=== PATIENT | female | born 1980 | race Asian ===

== ENCOUNTER 2016-08-25 17:25 | Inpatient (IN) | payer SELFPAY ==
[~2016-08-25] VITALS: Ht 161 cm; Wt 74.8 kg
[~2016-08-25 17:25] MED LIST: MOTRIN800 MG PO; PRENATAL VITAMI1 TA2 PO
[2016-08-25] MEDS ORDERED: PROMETHAZINE 25 MG/ML VIAL IVP PRN (17:45)
[2016-08-25] MEDS ORDERED: METHYLERGONOVINE 0.2 MG/ML AMP IM PRN ×2 (17:45→20:40)
[2016-08-25] MEDS ORDERED: CARBOPROST 250 MCG/ML AMP IM PRN (17:45)
[2016-08-25] MEDS ORDERED: OXYTOCIN 10 UNITS/ML VIAL IM SCH (17:45)
[2016-08-25] MEDS: LACTATED RINGERS 1,000 ML IV SCH ×2 (17:51→20:35)
[2016-08-25] MEDS ORDERED: OXYTOCIN 20 UNITS/LR PREMIX 1,000 ML IV SCH (18:00)
[2016-08-25 18:29] VITALS: BP 137/82
[2016-08-25] MEDS ORDERED: BUPIVACAINE 0.125%/NS PREMIX 250 ML ONE (20:38)
[2016-08-25] MEDS ORDERED: BENZOCAINE/MENTHOL 20%-0.5% 60 GM CAN TP PRN (20:40)
[2016-08-25] MEDS ORDERED: WITCH HAZEL 40 PAD PACKAGE TP PRN (20:40)
[2016-08-25] MEDS ORDERED: OXYTOCIN 10 UNITS/ML VIAL IM PRN (20:40)
[2016-08-25] MEDS ORDERED: MEASLES, MUMPS, AND RUBELLA 1 VIAL SQVAC PRN (20:40)
[2016-08-25] MEDS ORDERED: TEMAZEPAM 15 MG CAP PO PRN (20:40)
[2016-08-25] MEDS ORDERED: oxyCODONE/APAP 5/325 MG 1 TAB TAB PO PRN (20:40)
[2016-08-25] MEDS ORDERED: DOCUSATE SOD/SENNA 50/8.6 MG 1 TAB PO SCH (21:00)
[2016-08-25] MEDS ORDERED: OXYTOCIN 20 UNITS/LR PREMIX 1,000 ML IV ONE (21:01)
[2016-08-25] MEDS ORDERED: OXYTOCIN 10 UNITS/ML VIAL ONE (22:24)
[2016-08-26] MEDS: IBUPROFEN 800 MG TAB PO PRN ×2 (01:31→14:12)
[2016-08-26] MEDS ORDERED: IBUPROFEN 800 MG TAB ONE (01:34)
[2016-08-26] MEDS: HYDROcodone/APAP 5/325 MG 1 TAB TAB PO PRN ×4 (05:38→23:51)
[2016-08-26] MEDS: SODIUM PHOSPHATE 118 ML ENEM RC PRN ×5 (17:15→19:24)
[2016-08-27] MEDS: HYDROcodone/APAP 5/325 MG 1 TAB TAB PO PRN (04:01)
--- NOTE | 2016-08-27 06:50 | NUR ---
PATIENT HAS BEEN SCREENED AND CATEGORIZED LOW NUTRITION RISK. PATIENT WILL BE SEEN WITHIN 7 DAYS OF ADMISSION. 09/01/16 JULIETH MEDRANO MS, RDN
[2016-08-27] MEDS: IBUPROFEN 800 MG TAB PO PRN (09:16)
== END 2016-08-27 14:00 | disposition home or self-care (01) | DRG 775 ==
LOC: MLD 17:25 → MFCC 08-26 02:05
PROVIDERS: ADMIT Obstetrics & Gynecology; ATTEND Obstetrics & Gynecology
PROC: 10E0XZZ Delivery of Products of Conception, External Approach (ICD-10-PCS; principal; 2016-08-25)
PROC: 0KQM0ZZ Repair Perineum Muscle, Open Approach (ICD-10-PCS; 2016-08-25)
PROC: 10907ZC Drainage of Amniotic Fluid, Therapeutic from Products of Conception, Via Natural or Artificial Opening (ICD-10-PCS; 2016-08-25)
PROC: 00HU33Z Insertion of Infusion Device into Spinal Canal, Percutaneous Approach (ICD-10-PCS; 2016-08-25)
PROC: 3E0R3CZ (ICD-10-PCS; 2016-08-25)
PROC: 3E0234Z Introduction of Serum, Toxoid and Vaccine into Muscle, Percutaneous Approach (ICD-10-PCS; 2016-08-26)
PROC: 3E0234Z Introduction of Serum, Toxoid and Vaccine into Muscle, Percutaneous Approach (ICD-10-PCS; 2016-08-26)
DX: O77.0 Labor and delivery complicated by meconium in amniotic fluid (principal); O70.1 Second degree perineal laceration during delivery; Z37.0 Single live birth; Z3A.39 39 weeks gestation of pregnancy; Z23 Encounter for immunization; Z82.49 Family history of ischemic heart disease and other diseases of the circulatory system